=== PATIENT | male | born 1965 | race Caucasian/White ===

== ENCOUNTER 2017-08-20 18:12 | Emergency (ER) | payer OTHER ==
[2015-01-24 12:24] VITALS: BMI 28.1
[~2017-08-20 18:12] MED LIST: MULTIPLE VITAMI1 TA1 PO; TESTOSTERON200 MG/ML IM
== END 2017-08-20 20:11 | disposition home or self-care (01) ==
LOC: D.ER 18:12
DX: T78.49XA Other allergy, initial encounter (principal); X58.XXXA Exposure to other specified factors, initial encounter; I45.10 Unspecified right bundle-branch block